=== PATIENT | female | born 1965 | race African-American/Black ===

== ENCOUNTER 2019-02-27 06:08 | Day surgery (SDC) | payer OTHER ==
[~2019-02-27 06:08] MED LIST: SODIUM CHLORIDE 0.9% 1000 ML 1,000 ML IV SCH
--- NOTE | 2019-02-27 08:06 | Anesthesia Day of Surgery ---
Anesthesia Day of Surgery - Day of Surgery Patient Examined: Yes Patient H&P Reviewed: Yes Patient is NPO: Yes
--- NOTE | 2019-02-27 08:07 | Anesthesia Consultation ---
Anesthesia Consult and Med Hx Date of service: 02/27/19 - Airway Anesthetic Teeth Evaluation: Good ROM Head & Neck: Adequate Mental/Hyoid Distance: Adequate Mallampati Class: Class I Intubation Access Assessment: Good - Pulmonary Exam CTA: Yes - Cardiac Exam Cardiac Exam: RRR - Pre-Operative Health Status ASA Pre-Surgery Classification: ASA2 Proposed Anesthetic Plan: General, MAC - Gastrointestinal Hx Gastroesophageal Reflux Disease: Yes (Abd Pain,Reflux. Hep B)
[2019-02-27] MEDS ORDERED: PROPOFOL 200 MG/20 ML VIAL IV ONE ×2 (08:20)
--- NOTE | 2019-02-27 09:08 | Short Stay Summary ---
Short Stay Documentation - Allergies and Medications Current Medications: Allergies No Known Allergies Allergy (Unverified 02/26/19 17:08) Active Medications Sodium Chloride (Nacl 0.9% 1000 Ml) 1,000 mls @ 50 mls/hr IV DIRECT DANITZA - Brief post op/procedure progress note Date of procedure: 02/27/19 Pre-op diagnosis: 1. Epigastric pain 2. GERD Post-op diagnosis: same (1. GERD 2. Gastritis) Procedure: EGD with biopsy Anesthesia: MAC Findings: as above Surgeon: PAOLO STODDARD Estimated blood loss: none Pathology: list (1. Antrum) Specimen disposition: to lab Condition: stable - Disposition Condition at discharge: Stable Disposition: [id number] TO HOME OR SELFCARE Short Stay Discharge Plan Activity: no restrictions Weight Bearing Status: Full Weight Bearing Diet: regular Follow up with: PRIMARY CAREMD [Primary Care Provider] - 7 Days
[2019-02-27 10:02] VITALS: BP 111/58
--- NOTE | 2019-02-28 16:48 | Post Anesthesia Evaluation ---
- Post Anesthesia Evaluation Patient Participated: Yes Airway Patent: Yes Stable Respiratory Function: Yes Nausea/Vomiting: No Temp > 96.8F: Yes Pain Manageable: Yes Adequeate Hydration: Yes Anesthesia Complications: No Block Receding Appropriately: Not Applicable Patient on Ventilator: No
== END 2019-02-27 09:50 | disposition home or self-care (01) ==
LOC: GIO 06:08
PROVIDERS: ATTEND Internal Medicine Gastroenterology
DX: K21.9 Gastro-esophageal reflux disease without esophagitis (principal); K29.70 Gastritis, unspecified, without bleeding; R10.13 Epigastric pain; R10.12 Left upper quadrant pain; Z79.899 Other long term (current) drug therapy
CPT/HCPCS: 43239; 88305; 88342; J2704

== ENCOUNTER 2019-04-28 08:39 | Outpatient (CLI) | payer OTHER ==
--- NOTE | 2019-04-28 10:56 | Ultrasound Report ---
ULTRASOUND ABDOMEN, COMPLETE INDICATION: B18.1 CHRONIC HEPATITIS/R10.13 EPIGASTRIC PAIN/[id number] DYSP. COMPARISON: No relevant prior imaging study available. FINDINGS: Pancreas: No significant abnormality. Abdominal Aorta: No significant abnormality. IVC: No significant abnormality. Liver: The liver measures 15 cm in length. No significant abnormality. Normal hepatopedal blood flow in the main portal vein. Gallbladder: No significant abnormality. Bile ducts: No significant abnormality. Common bile duct measures 3.8 mm. Kidneys: Right: 9.8 cm in length. No significant abnormality. Left: 10.0 cm in length. No signifi cant abnormality. Spleen: No significant abnormality. Free fluid: None. Additional Findings: None. IMPRESSION: No sonographic abnormality of the abdomen. Signer Name: Heron Medina Jr, MD Signed: 04/28/2019 10:51 AM Workstation Name: [id number]
== END 2019-04-28 08:40 | disposition home or self-care (01) ==
LOC: US 08:39
PROVIDERS: ATTEND Internal Medicine Gastroenterology
DX: K30 Functional dyspepsia (principal); B18.1 Chronic viral hepatitis B without delta-agent
CPT/HCPCS: 76700

== ENCOUNTER 2019-06-03 08:05 | Outpatient (CLI) | payer OTHER ==
[2019-06-03] MEDS ORDERED: WATER FOR INJ Sterile (PF) 10 ML ONE (10:19)
[2019-06-03] MEDS ORDERED: SINCALIDE 5 MCG VIAL IV ONE ×2 (10:19→10:23)
[2019-06-03] MEDS ORDERED: WATER FOR INJ Sterile (PF) 10 ML IV ONE (10:24)
--- NOTE | 2019-06-03 11:52 | Nuclear Medicine Report ---
NUCLEAR MEDICINE HEPATOBILIARY SCAN INDICATION: R10.11 RUQ ABDOMINAL PAIN. TECHNIQUE: Radiotracer: Tc-99m mebrofenin (by IV): 5 mCi. Gallbladder Stimulant: 1.22 mcg of Kinevac FINDINGS: Hepatic activity: Normal. Biliary activity: Normal. Common bile duct activity at 10 minutes. Gallbladder activity: Normal at 15 minutes. Small bowel activity: After administration of Kinevac The gallbladder ejection fraction measures 88%. The patient reports new pain and cramps during the in fusion of Kinevac. IMPRESSION: No biliary obstruction. Normal gallbladder ejection fraction. Symptomatology as described. Signer Name: Heron Medina Jr, MD Signed: 06/03/2019 11:48 AM Workstation Name: [id number]
== END 2019-06-03 08:06 | disposition home or self-care (01) ==
LOC: NM 08:05
PROVIDERS: ATTEND Internal Medicine Gastroenterology
DX: R10.11 Right upper quadrant pain (principal)
CPT/HCPCS: 78227; A9537; J2805

== ENCOUNTER 2019-06-10 07:46 | Outpatient (CLI) | payer OTHER ==
[2019-06-10 08:29] LABS: Blood Urea Nitrogen 21 mg/dL (7-17)
--- NOTE | 2019-06-10 10:09 | Cat Scan Report ---
CT ABDOMEN AND PELVIS WITH CONTRAST HISTORY: RUQ ABDOMINAL PAIN. COMPARISON: Abdominal ultrasound from 04/28/2019 TECHNIQUE: CT images of the abdomen and pelvis were obtained following administration of intravenous contrast. All CT scans at this location are performed using CT dose reduction for ALARA by means of automated exposure control. CONTRAST: 100 ml of intravenous contrast administered. FINDINGS: Lungs/bones: There is mild bibasilar atelectasis and respiratory motion artifact. Degenerative sellers es are present spine with nothing acute. 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 Abdomen/pelvis: The liver, spleen, pancreas, adrenals, right kidney, and proximal GI tract appear un remarkable. There is a tiny simple cyst in the upper pole of the left kidney. The gallbladder demonstrates a phrygian cap (normal variant) but otherwise appears normal. No biliary ductal dilatation identified. Urinary bladder is mostly collapsed. There is a simple right ovarian cyst measuring 2.2 cm. Reproduct emelia organs are otherwise unremarkable. No pelvic free fluid. No acute colonic abnormality identified. The appendix and terminal ileum appear normal. IMPRESSION: 1. No acute abnormality identified. 2. Incidental findings as above including a simple right ovarian cyst. Signer Name: Jayden Clark MD Signed: 06/10/2019 10:04 AM Workstation Name: [id number]
== END 2019-06-10 07:47 | disposition home or self-care (01) ==
LOC: CT 07:46
PROVIDERS: ATTEND Internal Medicine Gastroenterology
DX: N20.0 Calculus of kidney (principal); R16.0 Hepatomegaly, not elsewhere classified; J98.11 Atelectasis; N83.291 Other ovarian cyst, right side; M47.814 Spondylosis without myelopathy or radiculopathy, thoracic region
CPT/HCPCS: 36415; 74177; 82565; 84520; Q9967